=== PATIENT | male | born 1950 | race Asian ===

== ENCOUNTER 2017-11-06 11:25 | Day surgery (SDC) | payer OTHER ==
[~2017-11-06] VITALS: Ht 162.6 cm; Wt 60.6 kg
[2017-11-06 11:54] VITALS: Ht 162.6 cm; Wt 60.6 kg
[2017-11-06] MEDS ORDERED: LISI2.5T59 PO (12:01)
[2017-11-06 12:26] VITALS: BP 160/81; PULSE 68; RESP 20
[2017-11-06] MEDS ORDERED: MIDAZOLAM 1 MG/ML 2 ML INJ ONE ×2 (14:26)
[2017-11-06] MEDS ORDERED: FENTAnyl 50 MCG/ML VIAL ONE (14:26)
--- NOTE | 2017-11-06 14:38 | OPPN ---
Date/Time of Note Date/Time of Note DATE: 11/06/17 TIME: 14:37 Proc Note GI Procedure Date 11/06/17 Indication: other (CRC screening) Pre-procedure Diagnosis CRC screening Post-procedure Diagnosis Impression: Normal colonic mucosa to cecum. Moderate-sized internal hemorrhoids. Otherwise normal colonoscopy Plan: Follow up as scheduled] High fiber diet Annual hemoccult stool testing [Screening colonoscopy in 10 years] . Procedure Performed: Colonoscopy Surgeon RALPH ADAMSON MD See signature line Iron Setter none Anesthesia Type: moderate sedation (Versed 3 mg/fentanyl 75 mcg) Tourniquet Time none EBL none Transfusion required none Biopsy 1: None Grafts/Implants none Tubes/Drains none Complication(s) none Disposition: home Procedure Description After informed consent, with the patient/relatives understanding the procedure, its indications and potential risks and complications, including but not limited to: Allergic reaction, bleeding, perforation, infection, and after all pertinent questions were answered to the patient's satisfaction, the patient/ relatives signed the witnessed informed consent. Following this, premedication was administered slowly IV push under careful cardiovascular and respiratory monitoring with pulse OX[employer], automatic blood pressure, and office helper clerical. Once the sedative effect was achieved, the patient was placed in the left lateral decubitus position, digital rectal examination was performed. The colonoscope was then introduced and advanced under visual control throughout all segments of the colon including: the rectum, sigmoid, descending colon, splenic flexure, transverse colon, hepatic flexure, ascending colon and finally reaching the cecum which was clearly identified by transillumination, finger indentation and the ileocecal valve. Careful examination of the mucosa of the lower gastrointestinal tract both on insertion as well as withdrawal of the instrument disclosed the following findings: PREPARATION QUALITY: [Adequate], RECTAL EXAM: The anorectal area was visualized examined and digital rectal examination performed with the following findings: No evidence of perirectal disease, no masses. COLONIC MUCOSA: The mucosa of all segments of the colon was carefully examined and showed the following findings: the examined mucosa appears within normal limits. There is no evidence of inflammatory changes, diverticular formation, polyps or neoplasms, vascular malformation, or any other abnormality. Moderate-sized internal hemorrhoids. The instrument was then withdrawn, the patient tolerated the procedure well and was transferred out of the Endoscopy Suite awake and in good condition to continue recovery under observation. RALPH ADAMSON MD Nov 06, 2017 14:38
[2017-11-06 14:50] VITALS: BP 137/79; PULSE 66; RESP 18
== END 2017-11-06 16:36 | disposition home or self-care (01) ==
LOC: GIL 11:25 → EDBD 16:30 → GIL 16:36
PROVIDERS: ATTEND Internal Medicine Gastroenterology
DX: Z12.11 Encounter for screening for malignant neoplasm of colon (principal); I10 Essential (primary) hypertension; K64.8 Other hemorrhoids
CPT/HCPCS: 45378; J2250; J3010; Z7610